=== PATIENT | female | born 1990 | race Two or more races ===

== ENCOUNTER 2017-05-09 23:42 | Emergency (ER) | payer SELFPAY ==
[~2017-05-09] VITALS: Ht 170.2 cm; Wt 58.1 kg
--- NOTE | 2017-05-09 23:42 | NUR ---
Patient was BIBA at this time.
[2017-05-10 00:03] VITALS: BP 129/90
[2017-05-10 00:25] LABS: BASOPHILS # (AUTO) 0.2 K/uL (0.00-0.22); BASOPHILS % (AUTO) 1.6 % (0.0-2.0); EOSINOPHILS # (AUTO) 0.3 K/uL (0-0.4); EOSINOPHILS % (AUTO) 3.4 % (0.0-4.0); HEMATOCRIT 40.8 % (36-48); HEMOGLOBIN 13.6 g/dL (12.0-16.0); LYMPHOCYTES # (AUTO) 2.7 K/uL (2.5-16.5); LYMPHOCYTES % (AUTO) 28.7 % (20.5-51.1); MEAN CORPUSCULAR HEMOGLOBIN 30 pg (27-31); MEAN CORPUSCULAR HGB CONC 33 g/dL (33-37); MEAN CORPUSCULAR VOLUME 91 fL (80-94); MONOCYTES # (AUTO) 0.7 K/uL (0.8-1.0); MONOCYTES % (AUTO) 7.9 % (1.7-9.3); NEUTROPHILS # (AUTO) 5.6 K/uL (1.8-7.7); NEUTROPHILS % (AUTO) 58.4 % (42.2-75.2); PLATELET COUNT (AUTO) 242 K/uL (140-450); RED BLOOD CELL COUNT(AUTO) 4.49 MIL/uL (4.20-5.40); RED CELL DISTRIBUTION WIDTH 11.8 % (11.6-13.7); WHITE BLOOD COUNT (AUTO) 9.5 K/uL (4.8-10.8)
[2017-05-10 00:35] LABS: ANION GAP 9.9 (8-16); CALCIUM 9.2 mg/dL (8.5-10.1); CARBON DIOXIDE 28.2 mmol/L (21-32); CHLORIDE 105 mmol/L (98-107); CREATININE 0.9 mg/dL (0.6-1.3); GFR ARICAN-AMERICAN 96 mL/min (>90); GFR NON ARICAN-AMERICAN 79 mL/min (>90); GLUCOSE 89 mg/dL (74-106); POTASSIUM 3.1 mmol/L (3.5-5.1); SODIUM SERUM 140 mmol/L (136-145); UREA NITROGEN, BLOOD 7 mg/dL (7-18)
[2017-05-10 00:41] LABS: ALANINE AMINOTRANSFERASE 22 U/L (12-78); ALBUMIN 4.5 g/dL (3.4-5.0); ALKALINE PHOSPHATASE 96 U/L (46-116); ASPARTATE AMINOTRANSFERASE 24 U/L (15-37); TOTAL BILIRUBIN 0.9 mg/dL (0.0-1.0)
[2017-05-10 00:42] LABS: ACETAMINOPHEN < 0.5 ug/ml (10-30); ALCOHOL, BLOOD < 3 mg/dL (<3); SALICYLATE < 2.8 mg/dL (2.8-20.0)
--- NOTE | 2017-05-10 00:54 | NUR ---
Patient ambulated to bed 07.
--- NOTE | 2017-05-10 01:07 | NUR ---
Dr. Lagunas evaluating patient at bedside.
--- NOTE | 2017-05-10 01:14 | NUR ---
26 Y/O F BIBA C/O HALLUCINATIONS,HEARING VOICES, NEEDLE ON HER SPINE , FATIQUE, DIZZINESS,AND WANTS TO SEE ERMD TO DISCUSS HER PROBLEM, NO INTENTION OF HURTING HERSELF.SHE WAS FOUND IN BUS STOP.NO S/S OF DISTRESS NOTED. ER MD AT BEDSIDE.
[2017-05-10] MEDS ORDERED: POTASSIUM CHLORIDE 10 MEQ TABER PO ONE (01:20)
--- NOTE | 2017-05-10 01:44 | NUR ---
Patient ambulated to bed 06.
--- NOTE | 2017-05-10 01:47 | NUR ---
PO MEDS GIVEN-NADR AT THIS TIME.
--- NOTE | 2017-05-10 02:11 | NUR ---
CALLED HOUSE [facility] FOR BUS PASS.
--- NOTE | 2017-05-10 06:03 | NUR ---
PT REMAINS ASLEEP, NO S/S OF DISTRESS NOTED AT THE MOMENT.
[2017-05-10 06:12] VITALS: BP 118/76
--- NOTE | 2017-05-10 06:12 | NUR ---
Patient discharged with v/s stable. Written and verbal after care instructions given and explained. Patient verbalized understanding. Ambulatory with steady gait. All questions addressed prior to discharge. Advised to follow up with PMD OR RETURN TO ER IF CONDITION WORSENS.
== END 2017-05-10 06:12 | disposition home or self-care (01) ==
LOC: MED 23:42
DX: F41.9 Anxiety disorder, unspecified (principal); R03.0 Elevated blood-pressure reading, without diagnosis of hypertension; F19.90 Other psychoactive substance use, unspecified, uncomplicated
CPT/HCPCS: 36415; 80053; 85025; 93005; 99285; G0480; G0482; 99284

== ENCOUNTER 2021-08-07 10:11 | Emergency (ER) | payer SELFPAY ==
[~2021-08-07] VITALS: Ht 170.2 cm; Wt 70.3 kg
[2021-08-07 10:12] VITALS: BP 108/72
--- NOTE | 2021-08-07 10:18 | NUR ---
PT TAKEN TO LOBBY TO WAIT FOR AVAILABLE BED.
--- NOTE | 2021-08-07 10:20 | NUR ---
PATIENT LEFT WITHOUT BEING SEEN BY DR. SILVESTRE. NO FURTHER CARE PROVIDED FOR PATIENT.
== END 2021-08-07 10:20 | disposition left against medical advice (07) ==
LOC: MED 10:11
DX: R51.9 Headache, unspecified (principal); Z53.21 Procedure and treatment not carried out due to patient leaving prior to being seen by health care provider